=== PATIENT | female | born 2000 | race Caucasian/White ===

== ENCOUNTER → 2023-12-23 06:41 | Outpatient (CLI) | payer OTHER, SELFPAY ==
--- NOTE | 2023-12-23 06:44 | DI.US.S_ITS ---
PROCEDURE: US PERIPH VENOUS LOW EXTREM BI INDICATIONS: EDEMA / PALPITATIONS TECHNIQUE: Real-time imaging, as well as color and pulse Doppler interrogation, were performed of the deep veins of both legs from the inguinal ligament to the popliteal fossa, with documentation of the visualized calf veins. COMPARISON: None. FINDINGS: Right: The common femoral, femoral, popliteal, and the visualized calf veins are normally compressible, and free of intraluminal thrombus. Color and pulse Doppler demonstrate normal phasic intravascular flow. There is normal augmentation response to distal compression maneuver. Left: The common femoral, femoral, popliteal, and the visualized calf veins are normally compressible, and free of intraluminal thrombus. Color and pulse Doppler demonstrate normal phasic intravascular flow. There is normal augmentation response to distal compression maneuver. IMPRESSION: No findings of deep venous thrombosis in either lower extremity. Dictated by: Ting Padilla M.D. on 12/23/2023 at 10:58 Approved by: Ting Padilla M.D. on 12/23/2023 at 10:58
--- NOTE | 2023-12-23 06:44 | DI.ECHO.S_ITS ---
[facility]---------+ [facility] : : [address] : : [place] : : [id number] : : Phone: [phone] Echocardiogram Report + + :Name: LAMIN THOMAS Study Date: 12/23/2023 Height: 63 in : :Hospital ReadingLocation: Weight: 179 lb : : Gender: Female BSA: 1.8 m2 : :: 2000 Age: 23 yrs BP: 114/87 mmHg: :Reason For Study: EDEMA, PALPITATIONS : :Ordering Physician: JEN, : :JENNIFER Alfred Performed By: Karina Lundy : :Referring: JENNIFER LI : + + Interpretation Summary The left ventricle is normal in size and wall thickness. Left ventricular wall motion is normal. Diastolic parameters suggest probable normal left ventricular diastolic function and normal filling pressures. The right ventricle is normal in size and function. There is no significant valvular heart disease. The IVC is of normal diameter and collapses greater than 50% with a sniff. This suggests a low right atrial pressure of 3 mm Hg. Procedure: A two-dimensional transthoracic echocardiogram with color flow and Doppler was performed. The study quality was technically adequate. There is no prior echocardiogram noted for this patient. The patient was in sinus rhythm with heart rates between 76-91 bpm during the exam. Left Ventricle: The left ventricle is normal in size and wall thickness. The ejection fraction is estimated to be 55-60%. Left ventricular wall motion is normal. Diastolic parameters suggest probable normal left ventricular diastolic function and normal filling pressures. Right Ventricle: The right ventricle is normal in size and function. Atria: The left atrial size is normal. Right atrial size is normal. There is no Doppler evidence for an interatrial shunt. Mitral Valve: The mitral valve is normal in structure and function. There is trace mitral regurgitation. Aortic Valve: The aortic valve is trileaflet. The aortic valve opens well. There is no aortic valve stenosis. No aortic regurgitation is present. Tricuspid Valve: The tricuspid valve is normal in structure and function. There is mild tricuspid regurgitation. Pulmonic Valve: The pulmonic valve leaflets are thin and pliable; valve motion is normal. There is trace pulmonic regurgitation. There is no significant valvular heart disease. Great Vessels: The aortic root is normal size. The dimensions of the ascending aorta are normal. The IVC is of normal diameter and collapses greater than 50% with a sniff. This suggests a low right atrial pressure of 3 mm Hg. Pericardium/ Pleura There is no pericardial effusion. There is no pleural effusion. MMode/2D Measurements & Calculations LVIDd: 4.1 cm LVOT diam: 2.0 cm LVIDs: 3.1 cm Ao root diam: 3.0 cm FS: 25.4 % asc Aorta Diam: 2.9 cm EPSS: 0.63 cm Ao Arch Diam (Prox Trans): 2.7 cm IVSd: 0.60 cm LVPWd: 0.73 cm LV colin. diameter/BSA (cm/m^2): 2.2 LV sys. diameter/BSA (cm/m^2): 1.7 LA A2 area: 13.0 cm2 RA long axis: 4.4 cm LA A4 area: 10.9 cm2 RA area: 12.1 cm2 LA length (vol): 4.6 cm RA vol: 28.4 ml LA vol: 26.3 ml RA : 15.4 ml/m2 LA vol index: 14.3 ml/m2 IVC diam: 0.66 cm RVD1 (basal): 3.1 cm RVD2 (mid): 2.5 cm TAPSE: 1.7 cm Doppler Measurements & Calculations Ao V2 max: 122.9 cm/sec LVOT Max Gio: 95.3 cm/sec Ao V2 mean: 85.8 cm/sec LV V1 max P.6 mmHg Ao max P.0 mmHg LV V1 VTI: 16.5 cm Ao mean P.3 mmHg ZAK(I,D): 2.2 cm2 Ao V2 VTI: 24.2 cm ZAK(V,D): 2.5 cm2 sev ratio: 0.68 ZAK indexed to BSA (cm^2/m^2): 1.2 MV E max gio: 52.3 cm/sec PA V2 max: 88.8 cm/sec MV A max gio: 46.7 cm/sec PA V2 mean: 63.7 cm/sec MV E/A: 1.1 PA mean P.8 mmHg Med Peak E' Gio: 8.8 cm/sec PA pr(Accel): 48.2 mmHg E/E' med: 5.9 Lat Peak E' Gio: 16.4 cm/sec E/E' lat: 3.2 E/e' average: 4.6 MV dec time: 0.15 sec SV(LVOT): 52.6 ml Reading Physician:10:03 AM
== END ==
LOC: US 06:42
PROVIDERS: Referring Provider Family Medicine; Visit Provider Family Medicine
DX: R60.0 Localized edema (principal); R00.2 Palpitations; I07.1 Rheumatic tricuspid insufficiency
CPT/HCPCS: 93306; 93970